=== PATIENT | female | born 1965 | race Caucasian/White ===

== ENCOUNTER 2016-09-25 11:17 | Emergency (ER) | payer OTHER ==
[~2016-09-25 11:17] MED LIST: PREDNISONE 10 M10 MG PO
[2016-09-25 11:56] LABS: HEMOGLOBIN 13.3 gm/dl (12.3-15.3); RED BLOOD COUNT 4.32 M/UL (4.00-5.10); WHITE BLOOD COUNT 4.8 K/UL (4.5-11.0)
[2016-09-25 12:20] LABS: BUN/CREATININE RATIO 18 (0-10)
== END 2016-09-25 19:15 ==
LOC: ER1 11:17
PROVIDERS: Emergency Medicine
DX: H33.22 Serous retinal detachment, left eye (principal); M79.2 Neuralgia and neuritis, unspecified; G43.909 Migraine, unspecified, not intractable, without status migrainosus; I74.9 Embolism and thrombosis of unspecified artery; R07.9 Chest pain, unspecified; R91.1 Solitary pulmonary nodule
CPT/HCPCS: 36415; 70450; 70496; 70498; 71010; 80053; 82550; 82553; 83874; 84484; 85025; 85610; 85730; 86140; 93005; 96360; 99285; J7050; Q9963

== ENCOUNTER → 2016-10-19 | Outpatient (CLI) | payer OTHER | LOC: RAD 15:26 | DX: M54.2 Cervicalgia (principal); M48.02 Spinal stenosis, cervical region; M25.78 Osteophyte, vertebrae | CPT/HCPCS: 72050 ==

== ENCOUNTER 2016-11-20 12:06 | Emergency (ER) | payer OTHER | END 2016-11-20 12:30 | disposition home or self-care (01) | LOC: ER1 12:06 | DX: J40 Bronchitis, not specified as acute or chronic (principal) | CPT/HCPCS: 99283 ==

== ENCOUNTER → 2016-11-24 | Outpatient (CLI) | payer OTHER | LOC: HEART 5 14:34 | DX: R06.02 Shortness of breath (principal) | CPT/HCPCS: 94010 ==

== ENCOUNTER → 2017-01-10 | Outpatient (CLI) | payer OTHER | LOC: CT 12-05 14:30 | DX: R91.8 Other nonspecific abnormal finding of lung field (principal) | CPT/HCPCS: 71250 ==

== ENCOUNTER → 2020-07-28 | Outpatient (CLI) | payer OTHER ==
[~2020-07-28] MED LIST changes: +BROMFED DM COU473 ML PO; +FLONASE 0.05% N16 GM; +LASIX20 MG PO; +LEVAQUIN500 MG PO; +NORCO 5-325 TA1 EACH PO; +PROAIR HFA8.5 GM INH; +SIMVASTATIN10 MG PO; +TESSALON PERLE100 MG PO; +UROCIT-K10 MEQ PO; +VENTOLIN HFA 66.7 GM INH; +XYZAL5 MG PO; +ZITHROMAX TRI-500 MG PO; +ZOFRAN ODT 4 MG4 MG PO; +ZOFRAN ODT 4 MG4 MG SL; +ZOFRAN4 MG PO
== END ==
LOC: HEART 5 11:46
DX: Z00.00 Encounter for general adult medical examination without abnormal findings (principal); R93.89 Abnormal findings on diagnostic imaging of other specified body structures; J30.9 Allergic rhinitis, unspecified; R07.89 Other chest pain; I51.89 Other ill-defined heart diseases; R06.02 Shortness of breath; R94.2 Abnormal results of pulmonary function studies
CPT/HCPCS: 71046; 94010; 94729

== ENCOUNTER 2020-10-05 13:35 | Emergency (ER) | payer OTHER | END 2020-10-05 15:28 | disposition home or self-care (01) | LOC: ER1 13:35 | DX: S61.212A Laceration without foreign body of right middle finger without damage to nail, initial encounter (principal); Z23 Encounter for immunization; W25.XXXA Contact with sharp glass, initial encounter; Y92.009 Unspecified place in unspecified non-institutional (private) residence as the place of occurrence of the external cause | CPT/HCPCS: 12002; 90471; 90715; 99283 ==

== ENCOUNTER 2021-08-04 18:44 | Emergency (ER) | payer OTHER | END 2021-08-04 21:35 | disposition home or self-care (01) | LOC: ER1 18:44 | DX: U07.1 COVID-19 (principal); Z90.710 Acquired absence of both cervix and uterus | CPT/HCPCS: 0240U; 71045; 87081; 87880; 99283 ==